=== PATIENT | female | born 1980 | race Caucasian/White ===

== ENCOUNTER → 2017-03-20 | Outpatient (CLI) | payer BC ==
--- NOTE | 2017-03-20 12:56 | WOMENS IMAGING REPORT ---
EXAM DESCRIPTION: U/S THYROID/ST TIS HEAD NECK COMPLETED DATE/TIME: 03/20/2017 10:05 am REASON FOR STUDY: NONTOXIC MULTINODULAR GOITER E04.2 NONTOXIC MULTINODULAR GOITER COMPARISON: 01/15/2016 TECHNIQUE: Dynamic and static ennis-scale images acquired of the thyroid gland. Selected additional c olor/power Doppler images recorded. All images stored to PACS. LIMITATIONS: None. FINDINGS: RIGHT LOBE: Stable in size. Heterogeneous echotexture. Multiple scattered nodules again identified with the largest measuring 12 mm. LEFT LOBE: Stable in size. Heterogeneous in echotexture. Multiple scattered nodules again identifie d with the largest measuring 13 mm. ISTHMUS: Normal size. Homogeneous echotexture. No cystic or solid masses. OTHER: No other significant finding. IMPRESSION: STABLE MULTINODULAR GOITER. TECHNICAL DOCUMENTATION: JOB ID: [id number] [employer]- All Rights Reserved
== END ==
LOC: WI 09:39
PROVIDERS: ATTEND Internal Medicine Endocrinology, Diabetes & Metabolism
DX: E04.2 Nontoxic multinodular goiter (principal)
CPT/HCPCS: 76536